=== PATIENT | male | born 1965 | race Caucasian/White ===

== ENCOUNTER 2016-10-03 11:03 | Emergency (ER) | payer MEDICARE, MEDICAID ==
[~2016-10-03 11:03] MED LIST: DUONEB DPS3 ML IH; FLONASE 0.05% D16 GM IH; LASIX DPS40 MG PO; LOPRESSOR DPS50 MG PO; MAALOX DPS30 ML PO; MICRO-K DPS10 MEQ PO; SLOW-MAG64 MG PO; SURFAK240 MG PO; TYLENOL DPS325 MG PO; TYLENOL-DPS650 MG PO; ZYRTEC DPS10 MG PO
--- NOTE | 2016-10-03 15:52 | NUR ---
pt comes into day with elevated respirations, bp, and pulse. pt is sob with ambulation down lacy and has difficulty walking normal for him (uses crutches) pt continues to look larger at each apt. today his abd is visible (his shirt is not long enough). pt has cobblestone texture to abd. pt states he feels he can not move enough air and has to cough all the time to try and get pflem out. pt feels as if he needs a nebulizer treatment. pt o2 sat would not regulate above 88. antonio enc pt to go to ER after we were finished in Wound care. Antonio spoke with AMI JACKOSN. 1500 ER ami jackson given antonio cell # and will discuss pt poc
--- NOTE | 2016-10-09 10:17 | ER ---
ADMIT: 10/03/2016 RM/LOC: ER [facility] MR#: [id number] [place], [place] [address] DION MARTINEZ [address] [address] Emergency Room Report SEX: M AGE: 51 : 1965 DATE: 10/03/2016 PRIMARY PROVIDER: City call. HISTORY OF PRESENT ILLNESS: Dion is a 51-year-old male, who was at the Wound Care today. He has been gaining weight on a steady way. Every time he gets his vitals, he has an increasing weight. The patient had had varicose veins and he has some issues with his left leg. He said he developed an infection in [facility] and after that, he has had some issues here and he has been getting care for locally at the [facility]. He was first in [place] and then he was transferred here for his evaluation and his care. Dr. Nielsen contacted the ER. She was concerned about possibly a PE because he was short of breath. The patient says he has never had any issues where he had to wear oxygen. Had no problems with his O2 intake, so the deal was she wanted us to do a CT to rule out PE. He is taking Lasix 40 mg b.i.d. He is pretty noncompliant with his medications and his medical care. PHYSICAL EXAMINATION: VITAL SIGNS: His blood pressure 156/62, with a heart rate of 98, respirations 24, temp 99.4, O2 sats 88 and between 88 and 90% on room air. HEENT: Normal inspection. He has decreased air movement. CVS: Regular rate and rhythm. ABDOMEN: Obese. SKIN: Rash, lower leg wound, careful wound care. Edema bilaterally. LABORATORY DATA: White blood cell count 9.6, hemoglobin is 18.1, and hematocrit is 58. Glucose 102 and creatinine is 1.2. He had a CTA that shows no large or central pulmonary embolism. Enlarged right ventricle with elevated right heart pressure. CLINICAL IMPRESSION: Morbid obesity, right-sided congestive heart failure, leg edema, and wound in left leg. He had an evaluation, but respiratory therapy where he will be using oxygen at home. He is essentially stable on his chronic O2 use. He will follow up with Dr. Beck or Dr. Schwartz for his care. He will continue coming in for wound evaluation and wound therapy at the hospital. GALINA Cooley / Giovanny Santiago MD / modl JOB #: [id number] CC: Giovanny Santiago MD, Attending Physician Giovanny Schwartz MD, Family Physician
== END 2016-10-03 16:45 | disposition home or self-care (01) ==
LOC: ER 11:03
DX: I50.9 Heart failure, unspecified (principal); E66.01 Morbid (severe) obesity due to excess calories

== ENCOUNTER → 2017-02-25 | Outpatient (CLI) | payer MEDICARE ==
--- NOTE | ~2017-02-25 | SS ---
ADMIT: 02/25/2017 RM/LOC: [facility] MR#: [id number] [place], [place] [address] SOURAV MARTINEZ [address] [address] Sleep Study SEX: M AGE: 51 : 1965 STUDY DATE: 02/25/2017 CLINICAL HISTORY: A 51-year-old male with body mass 54.9, 71 inches, 392 pounds, known history of obstructive sleep apnea, in the sleep lab for BiPAP titration. TECHNICAL DESCRIPTION: BiPAP titration performed on night of 02/25/2017, attended by a trained special procedure technologist. TITRATION FINDINGS: TITRATION DESCRIPTION: The patient was titrated from BiPAP 17/13 to 23/15. AirFit F20 large mask was used as interface. SLEEP: Total time in bed is 364 minutes. Total sleep time 297 minutes, sleep efficiency 81.6%. 58% of time was spent in stage II sleep, 19.3% of time was spent in stage REM. BREATHING: The patient had ongoing obstructive hypopneas at lower BiPAP pressures. On BiPAP 23/15, the patient was seen in REM sleep in supine position with good resolution of obstructive events. OXYGEN SATURATION: Average oxygen saturation is 87%, lowest oxygen saturation 75% REM sleep. Oxygen saturations were less than 88% for more than 5 minutes after resolution of obstructive events on BiPAP at 23/15, and hence oxygen saturation was less than 88% for more than 5 minutes after resolution of obstructive events on BiPAP 23/15. The patient may benefit from addition of oxygen. CARDIAC: Average heart rate is 98 beats per minute. MOVEMENTS/POSITION: During the study, the patient slept in the supine lateral position with no significant leg movements. IMPRESSION/PLAN: Recommend using BiPAP 23/15 with 3 L of oxygen bled in with mask as mentioned above. Recommend losing weight avoiding sedative and alcohol. Refrain from driving if excessively sleepy. Recommend avoiding sleeping in supine position. Clinical correlation needed. Compliance followup is recommended. Elmer Mazariegos MD/ cielo JOB #: [id number] CC: Giovanny Schwartz MD, Attending Physician Giovanny Schwartz MD, Family Physician Giovanny Schwartz MD
== END | disposition home or self-care (01) ==
LOC: RESC 20:28
DX: G47.33 Obstructive sleep apnea (adult) (pediatric) (principal)